=== PATIENT | female | born 1955 | race American Indian/Alaskan Native ===

== ENCOUNTER 2018-05-16 10:26 | Day surgery (SDC) | payer OTHER ==
[~2018-05-16 10:26] MED LIST: NACL 0.9% 1000 ML 1,000 ML IV SCH
--- NOTE | 2018-05-16 12:48 | Anesthesia Day of Surgery ---
Anesthesia Day of Surgery - Day of Surgery Patient Examined: Yes Patient H&P Reviewed: Yes Patient is NPO: Yes Beta Blockers: No
[2018-05-16] MEDS ORDERED: DIPRIVAN 10 MG/ML IV ONE ×2 (12:49→13:56)
--- NOTE | 2018-05-16 12:50 | Anesthesia Consultation ---
Anesthesia Consult and Med Hx Date of service: 05/16/18 - Airway Anesthetic Teeth Evaluation: Good ROM Head & Neck: Adequate Mental/Hyoid Distance: Adequate Mallampati Class: Class III Intubation Access Assessment: Good - Pulmonary Exam CTA: No - Cardiac Exam Cardiac Exam: No Murmur - Pre-Operative Health Status ASA Pre-Surgery Classification: ASA3 Proposed Anesthetic Plan: MAC - Cardiovascular System Hx Hypertension: Yes - Endocrine Hx Insulin Dependent Diabetes: Yes - Other Systems Hx Cancer: Yes
[2018-05-16] MEDS ORDERED: WATER FOR IRRIG STERILE IR ONE (13:54)
[2018-05-16] MEDS ORDERED: XYLOCAINE 2% INFILTRATI ONE (13:56)
--- NOTE | 2018-05-16 14:36 | Operative Report ---
Operative Report Operative Report: Date of procedure: 05/16/2018 Procedure: Colonoscopy with snare polypectomy, submucosal injection, multiple ho t biopsy polypectomies. Attending physician: Dhaval Garcia MD Shoe Repairer Helper: Dhaval Garcia MD Indication: Patient is a 63-year-old female who presents for colonoscopy for colorectal cancer screening. A colonoscopy serves to evaluate patient so that treatment may be directed based on the findings. Consent: Informed consent was obtained after advising the patient and family regarding nature of this procedure, its indications, potential benefits as well as possible complications including but not limited to bleeding perforation and adverse reaction to medication, infection as well as other cardiopulmonary complications. An informed written and verbal consent was then obtained after due opportunity was provided for questions and answers. Monitoring: Patient was monitored continuously with pulse oximetry and electrocardiographic recordings as well as blood pressure recordings. Vital signs remained stable throughout this procedure with no untoward events. Preoperative assessment: Patient was assessed immediately prior to this procedure for capacity to tolerate monitored anesthesia care and moderate sedation as well as general anesthesia. Patient's ASA classification is 2, Mallampati class is 2, Hyomental distance is 3. Instrument: [employer] video colonoscope Medications: Propofol given intravenously in divided doses. For details please refer to anesthesia records. Description of procedure: Patient was placed in the left lateral decubitus position after achieving sedation, a digital rectal examination was performed following which the colonoscope was introduced into the anal verge and advanced to the cecum which was identified by the ileocecal valve, the appendiceal orifice, as well as by the cecal strap and direct transillumination. The colonoscope was subsequently withdrawn with careful inspection of all mucosal surfaces. Patient tolerated this procedure well and was subsequently taken to the recovery room. The following findings were noted. Findings: The preparation was relatively poor with substantial retained stool in the cecum and ascending colon and transverse colon and less so in the sigmoid colon. In the transverse colon, patient had a broad-based 1 cm flat polyp which was elevated with submucosal injection of saline and removed by snare electrocautery and retrieved. There was an adjoining 7-8 mm flat polyp which was elevated with submucosal injection of saline however was removed by avulsion using a hot biopsy forceps. In the cecum, patient had a diminutive 3-4 mm sessile polyp which was removed by a hot biopsy polypectomy and retrieved. There was some bleeding post-polypectomy at this site and a Hemoclip was applied at the site. On the retroflex view at the anal verge, patient had internal hemorrhoids. Impression: Poor colonoscopic preparation. Transverse colon polyp 2 status post submucosal injection, snare polypectomy and hot biopsy polypectomy respectively. Cecal polyp status post hot biopsy polypectomy Retained stool. Internal hemorrhoids . Plan: Follow pathology report High-fiber diet. Repeat colonoscopy in 1 year, due to poor colonoscopic preparation.
--- NOTE | 2018-05-16 14:37 | Discharge Summary ---
Short Stay Discharge Plan Activity: advance as tolerated Weight Bearing Status: Weight Bear as Tolerated Diet: regular Follow up with: DEJAN AVERY MD [Primary Care Provider] - 7 Days
[2018-05-16 14:56] VITALS: BP 146/85
== END 2018-05-16 10:27 | disposition home or self-care (01) ==
LOC: GIO 10:26
PROVIDERS: ATTEND Internal Medicine Gastroenterology
DX: Z12.11 Encounter for screening for malignant neoplasm of colon (principal); D12.0 Benign neoplasm of cecum; K63.5 Polyp of colon; K64.8 Other hemorrhoids; E78.00 Pure hypercholesterolemia, unspecified; K21.9 Gastro-esophageal reflux disease without esophagitis; I10 Essential (primary) hypertension; E11.9 Type 2 diabetes mellitus without complications; Z98.890 Other specified postprocedural states; Z79.899 Other long term (current) drug therapy; Z88.8 Allergy status to other drugs, medicaments and biological substances
CPT/HCPCS: 45381; 45384; 45385; 82962; 88305; J2704; J7030

== ENCOUNTER 2019-02-18 00:06 | Emergency (ER) | payer OTHER ==
[2019-02-18] MEDS ORDERED: HYDROcodone/ACETAMINOPHEN 5-325 MG TAB PO ONE (03:00)
--- NOTE | 2019-02-18 03:06 | Emergency Department Report ---
HPI - General Chief Complaint: High BP Time Seen by Provider: 02/18/19 02:49 - HPI HPI: Room 3 The patient is 63-year-old female presenting with chief complaint of hypertension and headache. She states she developed a diffuse headache this evening at approximately 21:30 which she attributed to her elevated blood pressure. The patient states she took her blood pressure medication late this evening. Patient denies nausea or vomiting. Patient also complains of pain in the left tricep with range of motion. Patient gives her headache a score of 8/ 10 Location: [See above] Duration: [See above] Quality: [See above] Severity: [See above] Timing: [See above] Context: [See above] Modifying factors: [See above] Associated signs and symptoms: [see above] ED Past Medical Hx - Past Medical History Previous Medical History?: Yes Hx Hypertension: Yes Hx Diabetes: Yes Hx GERD: Yes Hx of Cancer: Yes (uterine CA) - Surgical History Past Surgical History?: Yes Additional Surgical History: hysterectomy - Family History Family history: no significant - Social History Smoking Status: Never Smoker Substance Use Type: None (denies illicit drug use) - Medications Home Medications: Home Medications Medication Instructions Recorded Confirmed Last Taken Type Lisinopril/Hydrochlorothiazide 20 mg PO QDAY 10/14/15 05/16/18 05/16/18 History [Zestoretic 20-25 mg] carvediloL [Coreg] 12.5 mg PO BID 10/14/15 05/16/18 05/16/18 History Onglyza 5 mg PO DAILY 05/15/18 05/15/18 05/15/18 History Meloxicam 7.5 mg PO PRN PRN 05/16/18 05/16/18 05/09/18 History Butalb/Acetamin/Caff 50-325-40 1 tab PO Q8HR PRN #10 tablet 02/18/19 Unknown Rx [Fioricet 50-325-40] ED Review of Systems ROS: Stated complaint: HBP, HEADACHE, LEFT ARM PAIN, JESSE Other details as noted in HPI Constitutional: no symptoms reported Eyes: denies: eye pain ENT: denies: throat pain Respiratory: no symptoms reported Cardiovascular: denies: chest pain Endocrine: no symptoms reported Gastrointestinal: denies: abdominal pain, vomiting Genitourinary: denies: dysuria Musculoskeletal: myalgia Neurological: headache Physical Exam - Physical Exam Vital Signs: Vital Signs 02/18/19 02/18/19 03:16 04:48 Pulse Rate 81 54 L Respiratory 16 16 Rate Blood Pressure 172/97 114/65 [Left] O2 Sat by Pulse 97 95 Oximetry Physical Exam: GENERAL: The patient is well-developed well-nourished female lying on stretcher not appearing to be in acute distress. [] HEENT: Normocephalic. Atraumatic. Extraocular motions are intact. Patient has moist mucous membranes. NECK: Supple. No meningitic signs are noted. There is no adenopathy noted. CHEST/LUNGS: Clear to auscultation. There is no respiratory distress noted. HEART/CARDIOVASCULAR: Regular. There is no tachycardia. There is no gallop rub or murmur. ABDOMEN: Abdomen is soft, nontender. Patient has normal bowel sounds. There is no abdominal distention. SKIN: There is no rash. There is no edema. There is no diaphoresis. NEURO: The patient is awake, alert, and oriented. The patient is cooperative. The patient has no focal neurologic deficits. The patient has normal speech. Cranial nerves II through XII grossly intact, no drift MUSCULOSKELETAL: There is no evidence of acute injury. ED Medical Decision Making - Lab Data Result diagrams: 02/18/19 03:11 02/18/19 03:11 Laboratory Tests 02/18/19 02/18/19 03:11 03:11 WBC 7.0 RBC 4.59 Hgb 14.5 H Hct 43.1 H MCV 94 MCH 32 MCHC 34 RDW 13.9 Plt Count 313 Lymph % (Auto) 38.7 H Faulk % (Auto) 8.4 H Eos % (Auto) 1.5 Baso % (Auto) 0.6 Lymph # 2.7 Faulk # 0.6 Eos # 0.1 Baso # 0.0 Seg Neutrophils % 50.8 Seg Neutrophils # 3.6 Sodium 140 Potassium 3.8 Chloride 100.9 Carbon Dioxide 26 Anion Gap 17 BUN 13 Creatinine 0.7 Estimated GFR > 60 BUN/Creatinine Ratio 19 Glucose 154 H Calcium 9.5 Total Bilirubin 0.20 AST 22 ALT 28 Alkaline Phosphatase 145 H NT-Pro-B Natriuret Pep 99.83 Total Protein 7.8 Albumin 4.2 Albumin/Globulin Ratio 1.2 - Radiology Data Radiology results: report reviewed (CT head), image reviewed (CT head) [facility] [address] [place] [address] Cat Scan Report Signed Patient: MADELEINE MORAES MR#: [id number] : 1955 Acct:[id number] Age/Sex: 63 / F ADM Date: 02/18/19 Loc: ED Attending Dr: Ordering Physician: BERE SARAVIA MD Date of Service: 02/18/19 Procedure(s): CT head/brain wo con Accession Number(s): [id number] cc: BERE SARAVIA MD CT HEAD WITHOUT CONTRAST INDICATION : hypertension, headache. TECHNIQUE: Axial, coronal and sagittal CT imaging was performed from the skull apex through the skull base without contrast. All CT scans at this location are performed using CT dose reduction for ALARA by means of automated exposure control. COMPARISON: None available. FINDINGS: PARENCHYMA: No mass, midline shift, hemorrhage, extraaxial collection or acute territorial infarction. VENTRICLES: Symmetric and normal in size. SOFT TISSUES: Soft tissues including the orbits appear normal. BONES: No acute osseous abnormality. SINUSES: No significant abnormality. ADDITIONAL FINDINGS: None. IMPRESSION: No acute intracranial abnormality. Signer Name: Go Cummings MD Signed: 02/18/2019 3:35 AM Workstation Name: [email or web address] Transcribed By: MN Dictated By: Go Cummings MD Electronically Authenticated By: Go Cummings MD Signed Date/Time: 02/18/19334 DD/ 4 TD/TT: - Differential Diagnosis hypertensive urgency, ICH, Critical care attestation.: If time is entered above; I have spent that time in minutes in the direct care of this critically ill patient, excluding procedure time. ED Disposition Clinical Impression: Hypertension, Headache Disposition: DC-01 TO HOME OR SELFCARE Is pt being admited?: No Does the pt Need Aspirin: No Condition: Stable Instructions: Hypertension (ED) Additional Instructions: Return to the emergency department should you develop worsening symptoms, inability to tolerate food or liquids, high fever or any other concerns Prescriptions: Butalb/Acetamin/Caff 50-325-40 [Fioricet 50-325-40] 1 tab PO Q8HR PRN #10 tablet PRN Reason: Headache Referrals: PAIGE PASCAL MD [Staff Physician] - 3-5 Days Time of Disposition: 05:22
[2019-02-18] MEDS ORDERED: cloNIDine 0.2 MG TAB PO ONE (03:23)
[2019-02-18 03:29] LABS: Basophils % (Auto) 0.6 % (0.0-1.8); Eosinophils # (Auto) 0.1 K/mm3 (0.0-0.4); Eosinophils % (Auto) 1.5 % (0.0-4.3); Hematocrit 43.1 % (30.3-42.9); Hemoglobin 14.5 gm/dl (10.1-14.3); Lymphocytes # (Auto) 2.7 K/mm3 (1.2-5.4); Lymphocytes % (Auto) 38.7 % (13.4-35.0); Mean Corpuscular HGB Conc 34 % (30-34); Mean Corpuscular Volume 94 fl (79-97); Monocytes # (Auto) 0.6 K/mm3 (0.0-0.8); Monocytes % (Auto) 8.4 % (0.0-7.3); Platelet Count 313 K/mm3 (140-440); Red Blood Count 4.59 M/mm3 (3.65-5.03); Red Cell Distribution Width 13.9 % (13.2-15.2)
--- NOTE | 2019-02-18 03:40 | Cat Scan Report ---
CT HEAD WITHOUT CONTRAST INDICATION : hypertension, headache. TECHNIQUE: Axial, coronal and sagittal CT imaging was performed from the skull apex through the skul l base without contrast. All CT scans at this location are performed using CT dose reduction for ALA RA by means of automated exposure control. COMPARISON: None available. FINDINGS: PARENCHYMA: No mass, midline shift, hemorrhage, extraaxial collection or acute territorial infarctio n. VENTRICLES: Symmetric and normal in size. SOFT TISSUES: Soft tissues including the orbits appear normal. BONES: No acute osseous abnormality. SINUSES: No significant abnormality. ADDITIONAL FINDINGS: None. IMPRESSION: No acute intracranial abnormality. Signer Name: Go Cummings MD Signed: 02/18/2019 3:35 AM Workstation Name: [id number]
[2019-02-18 03:52] LABS: Alanine Aminotransferase 28 units/L (7-56); Albumin 4.2 g/dL (3.9-5); BUN/Creatinine Ratio 19; Blood Urea Nitrogen 13 mg/dL (7-17); Calcium 9.5 mg/dL (8.4-10.2); Hemolysis Index 12
[2019-02-18 04:48] VITALS: BP 114/65
== END 2019-02-18 05:55 | disposition home or self-care (01) ==
LOC: ED 00:06
DX: I10 Essential (primary) hypertension (principal); E11.9 Type 2 diabetes mellitus without complications; K21.9 Gastro-esophageal reflux disease without esophagitis; Z90.710 Acquired absence of both cervix and uterus; Z79.899 Other long term (current) drug therapy; Z88.8 Allergy status to other drugs, medicaments and biological substances
CPT/HCPCS: 36415; 70450; 80053; 83880; 85025; 93005; 93010